=== PATIENT | female | born 1955 | race Two or more races ===

== ENCOUNTER 2019-02-16 15:19 | Emergency (ER) | payer OTHER ==
[~2019-02-16] VITALS: Ht 170.2 cm; Wt 51.7 kg
[~2019-02-16 15:19] MED LIST: CALCAVITDA PO; Copaxone20 MG SC; HYDACE10B PO; MORP15ER PO
[2019-02-16 15:55] LABS: BASOPHILS ABSOLUTE AUTO 0.06 K/mm3 (0.00-0.23); BASOPHILS PERCENT AUTO 1 % (0-2); EOSINOPHILS ABSOLUTE AUTO 0.22 K/mm3 (0.00-0.68); EOSINOPHILS PERCENT AUTO 2 % (0-6); Hematocrit 45.3 % (33.0-51.0); Hemoglobin 14.3 g/dL (11.5-16.0); IMMATURE GRAN ABSOLUTE AUTO 0.07 K/mm3 (0.00-0.10); IMMATURE GRAN PERCENT AUTO 1 % (0-1); LYMPHOCYTES ABSOLUTE AUTO 1.19 K/mm3 (0.84-5.20); LYMPHOCYTES PERCENT AUTO 11 % (21-46); MONOCYTES ABSOLUTE AUTO 1.53 K/mm3 (0.16-1.47); MONOCYTES PERCENT AUTO 14 % (4-13); Mean Corpuscular HGB 30.6 pg (26.0-34.0); Mean Corpuscular HGB Conc 31.6 g/dL (31.5-36.5); Mean Corpuscular Volume 97 fL (80-100); Mean Platelet Volume 10.7 fL (9.1-12.4); NEUTROPHILS ABSOLUTE AUTO 7.81 K/mm3 (1.96-9.15); NEUTROPHILS PERCENT AUTO 72 % (41-73); Platelet Count 206 K/mm3 (150-400); RDW Coefficient Variation 13.6 % (11.7-14.2); RDW Standard Deviation 49.2 fL (35.1-46.3); Red Blood Cell Count 4.67 M/mm3 (3.80-5.20); White Blood Cell Count 10.88 K/mm3 (4.00-11.30)
[2019-02-16 16:10] LABS: Alanine Aminotransfer (ALT/SGP 9 U/L (12-78); Albumin, Blood 2.9 g/dL (3.4-5.0); Albumin/Globulin Ratio 0.7 (0.8-1.8); Alk Phos 76 U/L (50-136); Anion Gap 7 mmol/L (6-16); Aspartate Aminotrans (AST/SGOT 11 U/L (12-37); Bilirubin, Total 0.6 mg/dL (0.1-1.0); Blood Urea Nitrogen 14 mg/dL (8-24); Bun/Creatinine Ratio 24.7 (12.0-20.0); CO2, Blood 24 mmol/L (21-32); Calcium, Blood 8.4 mg/dL (8.5-10.1); Chloride, Blood 106 mmol/L (98-108); Creatinine, Blood 0.57 mg/dL (0.40-1.00); Glomerular Filtration Rate >60 (60-); Glucose, Blood 113 mg/dL (70-99); Potassium, Blood 3.6 mmol/L (3.5-5.5); Sodium, Blood 137 mmol/L (136-145); Total Protein, Blood 6.9 g/dL (6.4-8.2)
[2019-02-16 19:03] LABS: Source, Urine Clean Catch
[2019-02-16 19:06] LABS: Blood, Urine 3+ (Neg); Glucose Qualitative, Urine Neg (Neg); Ketones, Urine 2+ (Neg); Leukocyte Esterase, Urine 1+ (Neg); Nitrite, Urine Neg (Neg); Protein, Urine 2+ (Neg); Specific Gravity, Urine 1.015 (1.003-1.022); Urobilinogen, Urine 2+ (Normal)
[2019-02-16 19:19] LABS: Appearance, Urine Clear (Clear); Bilirubin, Urine 1+ (Neg); Color, Urine Yellow (P-Yellow)
[2019-02-16 19:20] LABS: Bacteria Many /hpf; Squamous Epithelial Cells Few /hpf (Few)
[2019-02-16] MEDS ORDERED: ONDA4ODT MM (20:55)
== END 2019-02-16 21:16 | disposition home or self-care (01) ==
LOC: ER 15:19
PROVIDERS: Physician Assistant
DX: K52.9 Noninfective gastroenteritis and colitis, unspecified (principal); Z91.041 Radiographic dye allergy status; Z79.899 Other long term (current) drug therapy
CPT/HCPCS: 36415; 74176; 80053; 81001; 83605; 83690; 85025; 87086; 93005; 93010; 96374; 96376; 99284-25; J2405

== ENCOUNTER → 2019-07-05 | Outpatient (CLI) | payer OTHER ==
[~2019-07-05] MED LIST changes: +ONDA4ODT MM
[2019-07-06 14:37] LABS: Stool Occult Bld Immuno 1 Negative (NEGATIVE)
== END | disposition home or self-care (01) ==
LOC: LAB SHORT 13:42 → LAB 13:42
PROVIDERS: Family Medicine
DX: Z12.11 Encounter for screening for malignant neoplasm of colon (principal)
CPT/HCPCS: G0328

== ENCOUNTER → 2021-06-09 | Outpatient (CLI) | payer OTHER ==
[2021-06-12 18:12] LABS: HPV 16 Negative (Negative); HPV 18 Negative (Negative); HPV OTHER HR TYPES Negative (Negative)
== END ==
LOC: LAB SHORT 17:08 → LAB 17:08
PROVIDERS: Obstetrics & Gynecology
DX: Z01.419 Encounter for gynecological examination (general) (routine) without abnormal findings (principal); Z91.041 Radiographic dye allergy status
CPT/HCPCS: 87624; G0123

== ENCOUNTER → 2021-07-07 | Outpatient (CLI) | payer OTHER | END | disposition home or self-care (01) | LOC: LAB SHORT 15:24 | DX: R87.619 Unspecified abnormal cytological findings in specimens from cervix uteri (principal) | CPT/HCPCS: 88305 ==

== ENCOUNTER 2021-11-30 08:44 | Day surgery (SDC) | payer OTHER ==
[~2021-11-30] VITALS: Ht 170.2 cm; Wt 55.0 kg
[~2021-11-30 08:44] MED LIST changes: -HYDACE10B PO; +Norco 10-325 T1 EACH PO
[2021-11-30] MEDS ORDERED: GUAI600T33 PO (09:24)
[2021-11-30] MEDS ORDERED: ALBU90OI INH (09:25)
--- NOTE | 2021-11-30 09:39 | NUR ---
PATIENT STATES THEY TOOK ALL COLON PREP EXCEPT FOR HALF OF [place] DUE TO NAUSEA AND VOMITING, BUT REPORTS CLEAR BMs. DR. MORTON NOTIFIED. History, Chart, Medications and Allergies reviewed before start of procedure. Patient confirms NPO status and agrees with scheduled surgery. Patient States Post-Procedure ride home has been arranged with sister.
--- NOTE | 2021-11-30 10:25 | NUR ---
11/30/21 1025 Susan Morris History, Chart, Medications and Allergies reviewed before start of procedure. Patient confirms NPO status and agrees with scheduled surgery. 3-LEAD EKG REVIEWED WITH PHYSICIAN PRIOR TO START OF PROCEDURE. MONITOR INTACT WITH CONTINUOUS PULSE OXIMETRY AND INTERMITTENT BP. PATIENT DETERMINED TO BE ASA APPROPRIATE FOR PROPOFOL SEDATION PRIOR TO START OF PROCEDURE BY , NON REBREATHER ON IN PLACE OF N/C FOR HX OF COPD
--- NOTE | 2021-11-30 11:08 | NUR ---
Discharge instructions reviewed with patient. Patient verbalizes understanding. Copy given to patient to take home. Patient States Post-Procedure ride home has been arranged. Discharged via wheelchair to private car for ride home.
== END 2021-11-30 11:06 | disposition home or self-care (01) ==
LOC: ORSCMMR 08:44 → ORD 09:30 → ORSCMMR 11:06
PROVIDERS: Internal Medicine Gastroenterology
PROC: 0DBM8ZX Excision of Descending Colon, Via Natural or Artificial Opening Endoscopic, Diagnostic (ICD-10-PCS; principal; 2021-11-30 09:30)
PROC: 0DBP8ZX Excision of Rectum, Via Natural or Artificial Opening Endoscopic, Diagnostic (ICD-10-PCS; principal; 2021-11-30 09:30)
DX: Z12.11 Encounter for screening for malignant neoplasm of colon (principal); Z86.010 Personal history of colon polyps; D12.4 Benign neoplasm of descending colon; K62.1 Rectal polyp; Z87.898 Personal history of other specified conditions; F17.210 Nicotine dependence, cigarettes, uncomplicated; Z79.899 Other long term (current) drug therapy
CPT/HCPCS: 88305; J2704; J7120

== ENCOUNTER 2022-06-19 08:58 | Inpatient (IN) | payer OTHER ==
[~2022-06-19] VITALS: Ht 170.2 cm; Wt 56.2 kg
[~2022-06-19 08:58] MED LIST changes: +ALBU90OI INH; +GUAI600T33 PO
[2022-06-19 09:21] LABS: BASOPHILS ABSOLUTE AUTO 0.07 K/mm3 (0.00-0.23); BASOPHILS PERCENT AUTO 1 % (0-2); EOSINOPHILS ABSOLUTE AUTO 0.35 K/mm3 (0.00-0.68); EOSINOPHILS PERCENT AUTO 5 % (0-6); Hematocrit 47.8 % (33.0-51.0); Hemoglobin 15.7 g/dL (11.5-16.0); IMMATURE GRAN ABSOLUTE AUTO 0.01 K/mm3 (0.00-0.10); IMMATURE GRAN PERCENT AUTO 0 % (0-1); LYMPHOCYTES ABSOLUTE AUTO 2.12 K/mm3 (0.84-5.20); LYMPHOCYTES PERCENT AUTO 33 % (21-46); MONOCYTES ABSOLUTE AUTO 0.64 K/mm3 (0.16-1.47); MONOCYTES PERCENT AUTO 10 % (4-13); Mean Corpuscular HGB 29.8 pg (26.0-34.0); Mean Corpuscular HGB Conc 32.8 g/dL (31.5-36.5); Mean Corpuscular Volume 91 fL (80-100); Mean Platelet Volume 10.3 fL (9.1-12.4); NEUTROPHILS ABSOLUTE AUTO 3.28 K/mm3 (1.96-9.15); NEUTROPHILS PERCENT AUTO 51 % (41-73); Platelet Count 200 K/mm3 (150-400); RDW Coefficient Variation 13.8 % (11.7-14.2); RDW Standard Deviation 46.6 fL (35.1-46.3); Red Blood Cell Count 5.27 M/mm3 (3.80-5.20); White Blood Cell Count 6.47 K/mm3 (4.00-11.30)
[2022-06-19 09:38] LABS: Albumin/Globulin Ratio 1.1 (0.8-1.8); Bilirubin, Total 0.4 mg/dL (0.1-1.0); Bun/Creatinine Ratio 25.6 (12.0-20.0); Calcium, Blood 9.3 mg/dL (8.5-10.1); Creatinine, Blood 0.59 mg/dL (0.40-1.00); Globulin, Blood 3.6 g/dL (2.2-4.0); Potassium, Blood 4.3 mmol/L (3.5-5.5); Total Protein, Blood 7.6 g/dL (6.4-8.2)
[2022-06-19 09:48] LABS: Influenza A, PCR NEGATIVE (NEGATIVE); Influenza B, PCR NEGATIVE (NEGATIVE); Resp Syncytial Virus, PCR NEGATIVE (NEGATIVE); SARS-Cov-2 (COVID-19) PCR, MMC NEGATIVE (NEGATIVE)
--- NOTE | 2022-06-19 16:36 | NUR ---
PT ARRIVED TO ROOM AT 1445 WITH NOT DISTRESS NOTED. PT ON 3L AND SATING MID 90s O2. PT ONE PERSON ASSIST TO BEDSIDE COMMODE. PT AOX4 AND COOPERATIVE OF CARE, ABLE TO MAKE NEEDS KNOWN. CALL LIGHT IS WITHIN REACH. WILL CONTINUE TO MONITOR.
--- NOTE | 2022-06-20 04:09 | NUR ---
SHIFT SUMMARY; PT COMPLAINS OF SEVERE PAIN AT THE BEGINNING OF SHIFT, HOWEVER AFTER BEING MEDICATED WITH MS CONTIN PER EMAR AND NORCO PER EMAR PT REPORTS PAIN HAS SIGNIFICANTLY LESSENED ALLOWING HER TO GET SOME REST. PT REMAINS ON 3L NC TO MAINTAIN O2 SATS GREATER THAN 92%. PT AMBULATED WITH A 1 ASSIST AND THE USE OF A FWW TO THE BATHROOM. PT WAS KIND AND COOPERATIVE WITH CARE THROUGHOUT THE SHIFT. SPUTUM CULTURE STILL NEEDED. INCENTIVE SPIROMETER AT BEDSIDE, PT ENCOURAGED TO USE. CURRENTLY THE PT IS RESTING IN BED WITH THE BED IN THE LOWEST POSITION AND THE CALL LIGHT AT THE SIDE OF THE PT. PT DENIES ANY SOB AT THIS TIME.
[2022-06-20 05:44] LABS: BASOPHILS PERCENT AUTO 0 % (0-2); EOSINOPHILS PERCENT AUTO 0 % (0-6); Hematocrit 39.8 % (33.0-51.0); Hemoglobin 13.1 g/dL (11.5-16.0); IMMATURE GRAN ABSOLUTE AUTO 0.03 K/mm3 (0.00-0.10); IMMATURE GRAN PERCENT AUTO 1 % (0-1); LYMPHOCYTES ABSOLUTE AUTO 0.55 K/mm3 (0.84-5.20); LYMPHOCYTES PERCENT AUTO 10 % (21-46); MONOCYTES ABSOLUTE AUTO 0.16 K/mm3 (0.16-1.47); MONOCYTES PERCENT AUTO 3 % (4-13); Mean Corpuscular HGB 29.8 pg (26.0-34.0); Mean Corpuscular HGB Conc 32.9 g/dL (31.5-36.5); Mean Corpuscular Volume 91 fL (80-100); NEUTROPHILS ABSOLUTE AUTO 4.93 K/mm3 (1.96-9.15); NEUTROPHILS PERCENT AUTO 87 % (41-73); Platelet Count 164 K/mm3 (150-400); RDW Coefficient Variation 13.8 % (11.7-14.2); RDW Standard Deviation 46.5 fL (35.1-46.3); Red Blood Cell Count 4.39 M/mm3 (3.80-5.20); White Blood Cell Count 5.67 K/mm3 (4.00-11.30)
[2022-06-20 06:07] LABS: Magnesium, Blood 2.4 mg/dL (1.6-2.4)
[2022-06-20 06:08] LABS: Bun/Creatinine Ratio 28.9 (12.0-20.0); Calcium, Blood 8.9 mg/dL (8.5-10.1); Creatinine, Blood 0.59 mg/dL (0.40-1.00)
--- NOTE | 2022-06-20 16:49 | NUR ---
PT AOX4 AND COOPERATIVE OF CARE. PT HAS BEEN AT ROOM AIR TODAY AND MAINTAINING MID 90'S O2. PT IS STILL HAS VERY COURSE LUNG SOUNDS AND DR GONSALVES RECOMMENDING PT STAY A BIT LONGER TO IMPROVE BREATHING. PT ABLE TO MAKE NEEDS KNOWN AND HAS CALL LIGHT WITHIN REACH. TREATED FOR BODY PAIN PER EMAR. WILL CONTINUE TO MONITOR.
--- NOTE | 2022-06-20 19:32 | NUR ---
RECEIVED REPORT FROM ANNA RN. PT SITTING UP IN BED WATCHING TV. RESP EVEN ON RA. CALL LT IN REACH.
--- NOTE | 2022-06-20 22:00 | NUR ---
PLEASANT AND COOPERATIVE WITH CARE. ON RA. INDEP IN RM USING FWW. ABLE TO STATE NEEDS APPROPRIATELY. CALL LT IN REACH. WILL CONTINUE TO PROVIDE CARE T/O SHIFT.
--- NOTE | 2022-06-21 | NUR ---
PT RESTING QUIETLY. CALL LT IN REACH.
--- NOTE | 2022-06-21 02:00 | NUR ---
PT RESTING QUIETLY. NO ACUTE CHANGES. CALL LT IN REACH.
--- NOTE | 2022-06-21 04:09 | NUR ---
PT CONTINUES TO REST QUIETLY. CALL LT IN REACH.
--- NOTE | 2022-06-21 04:22 | NUR ---
SHIFT SUMMARY: A/O. USED FWW INDEPENDENTLY TO THE BATHROOM T/O SHIFT WITHOUT DIFFICULTY. ON RA. STATES A LITTLE SOB WHEN AMBULATING TO THE BR. MEDICATED WITH SCHEDULED PAIN MEDS T/O SHIFT. THE PAIN MEDICATION HELPS HER TO AMBULATE WITHOUT A LOT OF PAIN D/T HER MS. NO ACUTE CHANGES. POSSIBLE D/C TODAY. WILL CONTINUE TO PROVIDE CARE UNTIL SHIFT REPORT TO ONCOMING NURSE.
[2022-06-21] MEDS ORDERED: DOXY100 PO (11:01)
[2022-06-21] MEDS ORDERED: PRED20 PO (11:04)
--- NOTE | 2022-06-21 13:07 | NUR ---
PT DISCHARGED AT 1145 AND ALL PAPERWORK REVIEWED AND EDUCATIONAL MATERIAL SENT WITH PT. NO DISTRESS NOTED ON ROOM AIR AND INDENEPENDENT WITH WALKER IN ROOM. PT ESCORTED OUT VIA WHEELCHAIR BY AID TO N ENTRANCE. FRIEND TO TRANSPORT HOME.
== END 2022-06-21 11:59 | disposition home or self-care (01) | DRG 192 ==
LOC: ER 08:58 → MEDS 08:59
PROVIDERS: Emergency Medicine; ADMIT Student in an Organized Health Care Education/Training Program
PROC: 5A09357 Assistance with Respiratory Ventilation, Less than 24 Consecutive Hours, Continuous Positive Airway Pressure (ICD-10-PCS; principal; 2022-06-19)
DX: J44.1 Chronic obstructive pulmonary disease with (acute) exacerbation (principal); G89.29 Other chronic pain; Z66 Do not resuscitate; F17.210 Nicotine dependence, cigarettes, uncomplicated; Z92.21 Personal history of antineoplastic chemotherapy; Z20.822 Contact with and (suspected) exposure to COVID-19; Z90.5 Acquired absence of kidney; Z85.528 Personal history of other malignant neoplasm of kidney; Z91.041 Radiographic dye allergy status; Z79.899 Other long term (current) drug therapy; Z79.51 Long term (current) use of inhaled steroids; Z79.891 Long term (current) use of opiate analgesic; Z98.51 Tubal ligation status; Z90.721 Acquired absence of ovaries, unilateral; Z90.49 Acquired absence of other specified parts of digestive tract
CPT/HCPCS: 0241U; 36415; 71045; 80048; 80053; 83735; 83880; 84484; 85025; 93005; 93010; 94640; 94644; 94660; 94664; 94760; 94762; 96366; 96372; 96376; A9270; G0378; J1650; J2930; J7050

== ENCOUNTER → 2022-10-11 | Outpatient (CLI) | payer OTHER ==
[~2022-10-11] MED LIST changes: +DOXY100 PO; +PRED20 PO
[2022-10-13 15:07] LABS: HPV 16 Negative (Negative); HPV 18 Negative (Negative); HPV OTHER HR TYPES Negative (Negative)
== END | disposition home or self-care (01) ==
LOC: LAB 16:15 → LAB SHORT 16:15
PROVIDERS: Obstetrics & Gynecology
DX: Z01.419 Encounter for gynecological examination (general) (routine) without abnormal findings (principal)
CPT/HCPCS: 87624; G0145